=== PATIENT | female | born 1930 | race Caucasian/White ===

== ENCOUNTER 2016-11-24 13:41 | Emergency (ER) | payer MEDICARE ==
[~2016-11-24] VITALS: Ht 152.4 cm; Wt 48.2 kg
[~2016-11-24 13:41] MED LIST: ACET-2605 PO; AMLO5TAB2 PO; ASCO250T7 PO; ASPI-973 PO; ATOR20TA65 PO; BODY ORAL; CHOL400T PO; DENO60DI SQ; FERR-83 PO; FRSM80T PO; HYDR-4003 PO; LANS30CA14 PO; METO100T3 PO; NITR0.4T6 SL; POLY17PO6 PO; POTA20TA16 PO; SENN-133 PO; SPIR25TA PO; [UNRECOGNIZED DRUG - OTHER] ORAL
[2016-11-24 13:48] VITALS: BP 135/77; PULSE 67; RESP 20; O2SAT 100
[2016-11-24 14:24] VITALS: BP 127/64; PULSE 61; RESP 20; O2SAT 98
--- NOTE | 2016-11-24 14:59 | DRSVH ---
PROCEDURE: X-RAY CHEST ONE VIEW, PORTABLE ([id number]) INDICATIONS: CHEST PAIN TECHNIQUE: One view of the chest was acquired. COMPARISON: [facility], CR, XR CHEST 1VW (PORTABLE), 10/12/2016, 16:05. [facility], CR, XR CHEST 1VW (PORTABLE), 10/12/2016, 12:49. [facility], CR, XR CHEST 1VW (P ORTABLE), 02/23/2016, 17:37. FINDINGS: Surgical changes and devices: None. Lungs and pleura: No pleural effusions or pneumothorax. Lungs are clear. Mediastinum: Mediastinal contours appear normal. Heart size is normal. Bones and chest wall: No suspicious bony lesions. Overlying soft tissues appear unremarkable. IMPRESSION: No acute process. Dictated by: Christopher Perez M.D. on 11/24/2016 at 14:57 Approved by: Christopher Perez M.D. on 11/24/2016 at 14:57
[2016-11-24 15:13] LABS: BASOPHILS % (AUTO) 1.4 % (0-3); EOSINOPHILS % (AUTO) 6.4 % (0-5); MONOCYTES % (AUTO) 10.1 % (4-12); Mean Corpuscular Hemoglobin 29.5 pg (27.0-35.0); Mean Corpuscular Volume 88.3 fL (81-100); NEUTROPHILS % (AUTO) 60.7 % (40-74); Platelet Count 218 bil/L (150-400)
[2016-11-24 15:41] LABS: TROPONIN T < 0.010 ug/L (0.0-0.011)
[2016-11-24 15:44] LABS: Magnesium 2.1 mg/dL (1.6-2.6)
--- NOTE | 2016-11-24 16:30 | ED.REPORT ---
HPI-Chest Pain 40 and Over Date of Service Nov 24, 2016 ED Provider: Efren Nunez MD Pt is an 86 y/o female w/ a hx of CHF, HTN, presenting to the ED with family with concern for CHF exacerbation The pt's caregiver noticed a 5 pound water weight gain in the past few days. Pt c/o generalized weakness, fatigue, SOB, orthopnea, exertional SOB, increased peripheral edema, chest tightness (which occurred last night, lasted 5 minutes, and was relieved with nitro). Pt denies cough, fever, chills, nausea, vomiting, abdominal pain. She denies history of pulmonary disease. Her current Lasix dose is unknown. Nursing Notes Stated Complaint: POSSIBLE HEART ISSUES Chief Complaint: Chest Pain Nursing Notes Reviewed: Yes Allergies: Coded Allergies: indomethacin (Verified Allergy, Severe, RASH, 11/24/16) alendronate sodium (Verified Allergy, Unknown, 11/24/16) lisinopril (Verified Allergy, Unknown, COUGH, 11/24/16) Scheduled Acetaminophen/Diphenhydramine (Tylenol Pm Ex-Strength Caplet) 500 Mg-25 Mg Tablet 2 EACH PO HS Amlodipine (Amlodipine) 5 Mg Tablet 2.5 MG PO DAILY Ascorbic Acid (Vitamin C) 250 Mg Tab.chew 250 MG PO daily with iron tabs Aspirin (Aspirin) 81 Mg Tablet 81 MG PO DAILY Atorvastatin Calcium (Atorvastatin Calcium) 20 Mg Tablet 20 MG PO HS Cholecalciferol (Vitamin D3) (Vitamin D3) 400 Unit Tablet 400 UNIT PO DAILY Denosumab (Prolia) 60 Mg/1 Ml Syringe 60 MG SQ every 6 months Ferrous Sulfate (Ferrous Sulfate) 325 Mg Tablet 325 MG PO DAILY Furosemide (Furosemide) 80 Mg Tab 80 MG PO DAILY Lansoprazole DR (Prevacid) 30 Mg Capsule 30 MG PO daily before meal Metoprolol Tartrate (Metoprolol Tartrate) 100 Mg Tablet 100 MG PO BID Potassium Chloride (Potassium Chloride) 20 Meq Tab.er.prt 40 MEQ PO DAILYWM Spironolactone (Aldactone) 25 Mg Tablet 12.5 MG PO DAILY Scheduled PRN ([excedrine back&body]) 2 tabs 250 MG ORAL BID PRN PRN prn Hydrocodone-Acetaminophen 5-325 mg (Hydrocodone-Acetaminophen 5-325 mg) 1 Each Tablet 1 TABLET PO q6h PRN PRN prn Nitroglycerin SL (Nitroglycerin SL) 0.4 Mg Tab.subl 0.4 MG SL DIRECTED PRN PRN chest pain Polyethylene Glycol 3350 (Miralax) 17 Gm Powd.pack 17 GM PO DAILY PRN PRN For Constipation Sennosides (Senna) 8.6 Mg Tablet 17.2 MG PO PRN For Constipation General Time Seen by MD: 16:29 Chief Complaint Chest pain, Shortness of breath Hx Obtained From: Patient Arrived By: Walk-in Sudden in Onset?: No Onset Occurred: 3 days ago Symptom Duration: Since onset Location: : Substernal Quality: Painful Severity: Current: No pain currently Severity: Maximum: Mild Recent Healthcare: Previous diagnosis, Prior workup Similar Sx Previous: Yes Past Medical History Past Medical History Notes: Code Status: Full Code Past Medical History Reports: Congestive heart failure, GERD, Hypertension Past Surgical History Reports: Appendectomy, Hysterectomy Family History Noncontributory Smoking History Never Smoker Social History Alcohol Use: Denies alcohol use Drug Use: Denies drug use Other Social History: Lives alone Ambulatory Status Independent Review of Systems Constitutional: Denies: Chills, Fever Respiratory: Reports: Shortness of breath, Denies: Non-productive cough Cardiovascular: Reports: Chest pain, Dyspnea on exertion, Edema, Orthopnea GI: Denies: Abdominal pain, Nausea, Vomiting Complete sys rev & neg: except as marked. Physical Exam Initial Vital Signs Vital Signs (First) Date Time Temp Pulse Resp B/P Pulse Ox O2 Delivery O2 Flow Rate FiO2 11/24/16 13:48 36.1 67 20 135/77 100 Room Air Initial VS: Reviewed, Vital signs normal Head / Eyes: Atraumatic, Normocephalic, PERRL ENT: Mucous membranes moist, Conjunctiva normal, No scleral icterus Neck: Supple, Full range of motion Extremities: Vascular intact, Neuro intact, No tenderness Skin: Warm, Dry, No cyanosis Neurologic: Alert, Oriented, Nonfocal Psychiatric: Mood/affect normal, Behavior normal, Normal thought content General/Constitutional: Awake, Alert, No acute distress, Well appearing, Cooperative, Not toxic appearing Respiratory / Chest: Atraumatic, Breath sounds NL, Breath sounds = bilat, No respiratory distress, No rales, No rhonchi, No wheezing, No retractions, No stridor, No chest tenderness, No chest wall deformity, No crepitus Cardiovascular: Heart rate NL, Regular rhythm, Heart sounds NL, No gallop, No murmurs, No rubs, Cap refill not delayed, Peripheral circulation NL Trace edema bilaterally Abdomen: Atraumatic, Soft Interpretation & Diagnostics Lab Results Interpretation Result Diagram: 11/24/16 1500 11/24/16 1500 Test 11/24/16 15:00 White Blood Count 5.2th/mm3 (3.8-10.1) Red Blood Count 4.00mil/mm3 (3.90-5.20) Hemoglobin 11.8g/dL (12.0-15.6) Hematocrit 35.3% (35.0-46.0) Mean Corpuscular Volume 88.3fL (81-100) Mean Corpuscular Hemoglobin 29.5pg (27.0-35.0) Mean Corpuscular Hemoglobin Concent 33.4% (32.0-37.0) Red Cell Distribution Width 13.3% (12.3-15.4) Platelet Count 218bil/L (150-400) Neutrophils (%) (Auto) 60.7% (40-74) Lymphocytes (%) (Auto) 21.2% (14-46) Monocytes (%) (Auto) 10.1% (4-12) Eosinophils (%) (Auto) 6.4% (0-5) Basophils (%) (Auto) 1.4% (0-3) Sodium Level 129mEq/L (134-144) Potassium Level 4.2mEq/L (3.5-5.2) Chloride Level 88mEq/L (97-108) Carbon Dioxide Level 25mmol/L (18-29) Blood Urea Nitrogen 36mg/dL (8-27) Creatinine 0.93mg/dL (0.57-1.00) Estimat Glomerular Filtration Rate 82mL/min (>59) Glucose Level 85mg/dL (60-99) Calcium Level 9.3mg/dL (8.5-10.1) Magnesium Level 2.1mg/dL (1.6-2.6) Total Bilirubin 0.3mg/dL (0.0-1.2) Aspartate Amino Transf (AST/SGOT) 20U/L (0-50) Alanine Aminotransferase (ALT/SGPT) 13U/L (0-32) Alkaline Phosphatase 70U/L (25-165) Troponin T < 0.010ug/L (0.0-0.011) Total Protein 6.9g/dL (6.4-8.4) Albumin 4.4g/dL (3.4-5.0) ECG Interpretation ECG Interpretation: Sinus rhythm rate 62 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 Dictated by: Christopher Perez M.D. on 11/24/2016 at 14:57 Approved by: Christopher Perez M.D. on 11/24/2016 at 14:57 View: Portable, 1 view Interpretation / Wet Read by: Interpret - Radiologist Re-Eval/Medical Decision Source of Hx: Old records, Family Time of Eval: 17:03 Re-Evaluation/Progress Note: Pt rechecked. Informed pt of plan for treatment. Pt understands and agrees with plan for treatment. F/U and RTER warnings given. All questions addressed. Counseled Regarding: Diagnosis, Lab results, Need for follow-up, When/why to return to ED Discharge & Departure Primary Impression: Congestive heart failure Congestive heart failure type: unspecified congestive heart failure type Congestive heart failure chronicity: chronic Qualified Code: I50.9 - Heart failure, unspecified Disposition: Home Discharge Condition All VS Reviewed: Yes Condition: Stable Patient Instructions: Congestive Heart Failure (ED) Additional Instructions: Your labs and x-ray today are normal and your physical exam is reassuring. You are appropriate for discharge today. I do suspect your symptoms are caused by congestive heart failure. I recommend an extra dose of furosemide today tomorrow and Tuesday. You should feel back to normal by Tuesday, if not, follow up at the clinic. Follow-up with Dr. Rodríguez next week for a recheck and to discuss your medications. Return to the emergency department for worsening shortness of breath, worsening chest pain, fever, or for other concerning symptoms. Referrals: Kerline Rodríguez MD (PCP) Scribe Attestation Portions of this note were transcribed by Derrell Leslie. I, Dr. Nunez personally performed the history, physical exam and medical decision-making; I reviewed and confirmed the accuracy of the information in the transcribed note. Signed by Edu Amos, 11/24/16 - [id number] copies to: Kerline Rodríguez MD, Kirk H MD Nov 24, 2016 16:30 DERRELL LESLIE Nov 24, 2016 16:31
[2016-11-24 18:10] VITALS: BP 120/62; PULSE 60; RESP 16; O2SAT 99
== END 2016-11-24 18:11 | disposition home or self-care (01) ==
LOC: SED 13:41
DX: I50.9 Heart failure, unspecified (principal); R53.1 Weakness; R06.02 Shortness of breath; R07.89 Other chest pain; R60.9 Edema, unspecified; I10 Essential (primary) hypertension; K21.9 Gastro-esophageal reflux disease without esophagitis; Z79.82 Long term (current) use of aspirin; Z88.8 Allergy status to other drugs, medicaments and biological substances